=== PATIENT | female | born 1960 | race Caucasian/White ===

== ENCOUNTER 2017-02-21 05:55 | Day surgery (SDC) | payer BC ==
[2017-02-21] VITALS (9 sets, daily range): BP systolic 110–139; BP diastolic 53–76
[~2017-02-21] VITALS: Ht 157.5 cm; Wt 100.7 kg
[~2017-02-21 05:55] MED LIST: ALOE VERA500 MG PO; BACTRIM DS1 TAB PO; CIPRO XR500 MG PO; CIPROFLOXACN500 MG PO; CRESTOR10 MG PO; DILAUDID2 MG PO; FLAGYL500 MG PO; HYDROCHLOROT12.5 MG PO; LEVOTHYROXIN100 MCG PO; LORTAB 5/3255 MG PO; LOSARTAN POTASS50 MG PO; METRONIDAZOL500 MG PO; MILK OF MAG30 ML/UDC PO; MUPIROCIN2 % EX; OXYCODONE HCL5 MG PO; TRAMADOL HCL50 MG PO; VITAMIN B-121000 MCG PO; ZOFRAN4 MG/TAB PO
[2017-02-21 16:55] LABS: HEMATOCRIT 32.2 % (37.0-47.0); HEMOGLOBIN 10.9 g/dl (12.0-16.0)
[2017-02-22 00:46] VITALS: BP 106/69
[2017-02-22 05:05] VITALS: BP 134/90; BP 97/69
[2017-02-22 07:53] VITALS: BP 125/59
[2017-02-22 15:18] VITALS: BP 103/57
[2017-02-22 19:21] VITALS: BP 107/58
[2017-02-23 04:34] VITALS: BP 125/64
[2017-02-23 07:36] VITALS: BP 138/50
[2017-02-23] MEDS ORDERED: LORTAB 7.5-3251 TAB PO (07:48)
[2017-02-23] MEDS ORDERED: MACROBID100 MG PO (07:49)
== END 2017-02-23 09:30 | disposition home or self-care (01) | DRG 742 ==
LOC: ENPENDDIS → ORM 05:55 → MS2 09:15 → ORM 02-23 09:30
PROVIDERS: ATTEND Obstetrics & Gynecology
PROC: 0UT97ZZ Resection of Uterus, Via Natural or Artificial Opening (ICD-10-PCS; principal; 2017-02-21)
PROC: 0UTC7ZZ Resection of Cervix, Via Natural or Artificial Opening (ICD-10-PCS; 2017-02-21)
PROC: 0JQC0ZZ Repair Pelvic Region Subcutaneous Tissue and Fascia, Open Approach (ICD-10-PCS; 2017-02-21)
PROC: 0TSD0ZZ Reposition Urethra, Open Approach (ICD-10-PCS; 2017-02-21)
DX: N81.4 Uterovaginal prolapse, unspecified (principal); Z68.41 Body mass index [BMI] 40.0-44.9, adult; N39.3 Stress incontinence (female) (male); R33.9 Retention of urine, unspecified; E66.9 Obesity, unspecified
CPT/HCPCS: J2710; Q9967

== ENCOUNTER 2018-06-05 01:57 | Emergency (ER) | payer BC ==
[~2018-06-05] VITALS: Ht 157.5 cm; Wt 97.6 kg
[~2018-06-05 01:57] MED LIST changes: +LORTAB 7.5-3251 TAB PO; +MACROBID100 MG PO
[2018-06-05] MEDS ORDERED: OMEPRAZOLE10 MG PO (02:06)
[2018-06-05 02:40] LABS: HEMOGLOBIN 12.7 g/dl (12.0-16.0); IMMATURE GRANULOCYTES 0.3 % (0.0-5.0); MEAN CORPUSCULAR HGB 29.7 pG CALC (26.0-32.0); NEUT# 6.54 thou/uL (2.00-7.15); RED BLOOD COUNT 4.28 mill/uL (4.20-5.60); RED CELL DISTRI WIDTH 13.3 % (11.5-15.5)
[2018-06-05 02:45] LABS: HEMATOCRIT 38.5 % (37.0-47.0)
[2018-06-05 02:52] LABS: ALBUMIN 3.6 g/dL (3.2-5.0); ALKALINE PHOSPHATASE 173 u/l (38-126); ANION GAP 12 (6-22 (CALC)); BILIRUBIN, TOTAL 1.1 mg/dL (0.0-1.4); BUN 17 mg/dL (7-17); BUN/CREATININE RATIO 22 (12-20 (CALC)); CARBON DIOXIDE 26 mmol/l (22-30); CHLORIDE 105 mmol/l (95-108); CREATININE 0.8 mg/dL (0.5-1.0); GFR > 60 ML/MIN (>=60 (CALC)); GFR FOR AFR.AMER. > 60 ML/MIN (>=60 (CALC)); POTASSIUM 4.4 mmol/l (3.5-5.1); SGOT/AST 36 u/l (14-36); SODIUM 139 mmol/l (137-146); TOTAL PROTEIN 6.6 g/dL (6.3-8.2)
[2018-06-05] MEDS ORDERED: NAPROSYN500 MG PO (04:06)
[2018-06-05] MEDS ORDERED: AMOXICILLIN500 MG PO (04:06)
[2018-06-05 04:15] VITALS: BP 164/77
== END 2018-06-05 04:22 | disposition home or self-care (01) | DRG 159 ==
LOC: ED 01:57
PROVIDERS: Emergency Medicine
DX: K04.7 Periapical abscess without sinus (principal); R22.0 Localized swelling, mass and lump, head; K08.89 Other specified disorders of teeth and supporting structures

== ENCOUNTER 2018-06-22 08:22 | Day surgery (SDC) | payer BC ==
[~2018-06-22] VITALS: Ht 157.5 cm; Wt 95.7 kg
[~2018-06-22 08:22] MED LIST changes: +AMOXICILLIN500 MG PO; +ESTRADIOL0.5 MG PO; +MELOXICAM7.5 MG PO; +NAPROSYN500 MG PO; +OMEPRAZOLE10 MG PO; +XANAX0.25 MG PO
[2018-06-22 11:22] VITALS: BP 164/83
== END 2018-06-22 11:36 | disposition home or self-care (01) | DRG 392 ==
LOC: ENDO 08:22 → ORM 09:30 → ENDO 10:45 → ORM 11:55 → ENDO 11:55 → ORM 12:15 → ENDO 12:55 → ORM 12:55
PROVIDERS: ATTEND Internal Medicine Gastroenterology
PROC: 0D758ZZ Dilation of Esophagus, Via Natural or Artificial Opening Endoscopic (ICD-10-PCS; principal; 2018-06-22)
PROC: 0DB48ZX Excision of Esophagogastric Junction, Via Natural or Artificial Opening Endoscopic, Diagnostic (ICD-10-PCS; 2018-06-22)
PROC: 0DB78ZX Excision of Stomach, Pylorus, Via Natural or Artificial Opening Endoscopic, Diagnostic (ICD-10-PCS; 2018-06-22)
DX: K22.2 Esophageal obstruction (principal); K21.9 Gastro-esophageal reflux disease without esophagitis; K29.70 Gastritis, unspecified, without bleeding; K25.9 Gastric ulcer, unspecified as acute or chronic, without hemorrhage or perforation; K44.9 Diaphragmatic hernia without obstruction or gangrene; E03.9 Hypothyroidism, unspecified; Z79.899 Other long term (current) drug therapy

== ENCOUNTER 2018-11-05 20:08 | Emergency (ER) | payer BC ==
[~2018-11-05] VITALS: Ht 157.5 cm; Wt 95.0 kg
[2018-11-05 21:13] LABS: HEMATOCRIT 37.7 % (37.0-47.0); HEMOGLOBIN 12.4 g/dl (12.0-16.0); IMMATURE GRANULOCYTES 0.3 % (0.0-5.0); MEAN CELL VOLUME 90.4 fL CALC (80.0-100.0); MEAN CORPUSCULAR HGB 29.7 pG CALC (26.0-32.0); MEAN CORPUSCULAR HGB CONC 32.9 g/L CALC (32.0-36.0); NEUT# 7.16 thou/uL (2.00-7.15); RED BLOOD COUNT 4.17 mill/uL (4.20-5.60); RED CELL DISTRI WIDTH 12.9 % (11.5-15.5)
[2018-11-05 21:25] LABS: ALBUMIN 3.8 g/dL (3.2-5.0); ALKALINE PHOSPHATASE 162 u/l (38-126); ANION GAP 14 (6-22 (CALC)); BILIRUBIN, TOTAL 0.9 mg/dL (0.0-1.4); BUN 19 mg/dL (7-17); BUN/CREATININE RATIO 21 (12-20 (CALC)); CARBON DIOXIDE 26 mmol/l (22-30); CHLORIDE 101 mmol/l (95-108); CREATININE 0.9 mg/dL (0.5-1.0); GFR > 60 ML/MIN (>=60 (CALC)); GFR FOR AFR.AMER. > 60 ML/MIN (>=60 (CALC)); POTASSIUM 4.1 mmol/l (3.5-5.1); SGOT/AST 30 u/l (14-36); SODIUM 137 mmol/l (137-146); TOTAL PROTEIN 6.9 g/dL (6.3-8.2)
[2018-11-05] MEDS ORDERED: AMOXICILLIN500 MG PO (21:47)
[2018-11-05] MEDS ORDERED: NAPROSYN500 MG PO (21:55)
[2018-11-05 22:35] VITALS: BP 176/74
== END 2018-11-05 22:35 | disposition home or self-care (01) | DRG 603 ==
LOC: ED 20:08
PROVIDERS: Emergency Medicine
DX: L03.115 Cellulitis of right lower limb (principal); R22.41 Localized swelling, mass and lump, right lower limb; R50.9 Fever, unspecified

== ENCOUNTER 2019-04-10 06:24 | Day surgery (SDC) | payer BC ==
[~2019-04-10] VITALS: Ht 157.5 cm; Wt 96.6 kg
[~2019-04-10 06:24] MED LIST changes: +ABILIFY10 MG PO
[2019-04-10 07:55] VITALS: BP 175/79
== END 2019-04-10 08:22 | disposition home or self-care (01) | DRG 556 ==
LOC: ORM 06:24
PROVIDERS: ATTEND Anesthesiology Pain Medicine
PROC: 3E0U33Z Introduction of Anti-inflammatory into Joints, Percutaneous Approach (ICD-10-PCS; principal; 2019-04-10)
PROC: 3E0U3BZ Introduction of Anesthetic Agent into Joints, Percutaneous Approach (ICD-10-PCS; 2019-04-10)
DX: M25.511 Pain in right shoulder (principal); M77.8 Other enthesopathies, not elsewhere classified; M19.011 Primary osteoarthritis, right shoulder

== ENCOUNTER 2019-05-01 06:07 | Day surgery (SDC) | payer BC ==
[~2019-05-01] VITALS: Ht 157.5 cm; Wt 93.4 kg
[2019-05-01] MEDS ORDERED: ANTIINFLAMMATORY PO (06:27)
[2019-05-01 07:41] VITALS: BP 182/79
== END 2019-05-01 08:35 | disposition home or self-care (01) | DRG 556 ==
LOC: ORM 06:07
PROVIDERS: ATTEND Anesthesiology Pain Medicine
PROC: 3E0U33Z Introduction of Anti-inflammatory into Joints, Percutaneous Approach (ICD-10-PCS; principal; 2019-05-01)
PROC: 3E0U3BZ Introduction of Anesthetic Agent into Joints, Percutaneous Approach (ICD-10-PCS; 2019-05-01)
DX: M25.511 Pain in right shoulder (principal); M25.512 Pain in left shoulder; M65.812 Other synovitis and tenosynovitis, left shoulder; M65.811 Other synovitis and tenosynovitis, right shoulder

== ENCOUNTER 2019-12-24 15:01 | Observation (INO) | payer BC ==
[~2019-12-24] VITALS: Ht 157.5 cm; Wt 102.0 kg
[~2019-12-24 15:01] MED LIST changes: +ANTIINFLAMMATORY PO
--- NOTE | 2019-12-24 15:11 | NUR ---
PT TO ROOM PER W/C, ALERT/ORIENTED, NO COMPLAINTS AT THIS TIME. STATES WAS SENT TO ER PER DOCTOR IN [place] THRU TELE MEDICINE
[2019-12-24 15:27] LABS: HEMOGLOBIN 12.3 g/dl (12.0-16.0); IMMATURE GRANULOCYTES 0.4 % (0.0-5.0); MEAN CELL VOLUME 89.8 fL CALC (80.0-100.0); MEAN CORPUSCULAR HGB 29.1 pG CALC (26.0-32.0); MEAN CORPUSCULAR HGB CONC 32.4 g/dL CAL (32.0-36.0); NEUT# 6.17 thou/uL (2.00-7.15); RED BLOOD COUNT 4.23 mill/uL (4.20-5.60); RED CELL DISTRI WIDTH 12.8 % (11.5-15.5)
[2019-12-24] MEDS ORDERED: GABAPENTIN100 MG PO (15:27)
[2019-12-24] MEDS ORDERED: VENTOLIN HFA IN (15:28)
[2019-12-24] MEDS ORDERED: MELOXICAM7.5 MG PO (15:29)
[2019-12-24] MEDS ORDERED: ROPINIROLE0.5 MG PO (15:29)
[2019-12-24 15:39] LABS: ALBUMIN 3.9 g/dL (3.2-5.0); ALKALINE PHOSPHATASE 126 u/l (38-126); ANION GAP 11 (6-22 (CALC)); BILIRUBIN, TOTAL 0.7 mg/dL (0.0-1.4); BUN 24 mg/dL (7-17); BUN/CREATININE RATIO 30 (12-20 (CALC)); CARBON DIOXIDE 24 mmol/l (22-30); CHLORIDE 104 mmol/l (95-108); CREATININE 0.8 mg/dL (0.5-1.0); GFR > 60 ML/MIN (>=60 (CALC)); GFR FOR AFR.AMER. > 60 ML/MIN (>=60 (CALC)); POTASSIUM 3.6 mmol/l (3.5-5.1); SGOT/AST 28 u/l (14-36); SODIUM 135 mmol/l (137-146); TOTAL PROTEIN 7.3 g/dL (6.3-8.2)
[2019-12-24 15:49] LABS: INTERNATIONAL NORMALIZED RATIO 1.2 RATIO (0.7-1.3); PROTHROMBIN TIME 12.5 SECONDS (9.0-12.5)
[2019-12-24 15:51] LABS: MYOGLOBIN 33 ng/mL (0 - 62)
--- NOTE | 2019-12-24 16:44 | NUR ---
PT W/HOB CONVERSING W/FAMILY ON PHONE. SPEECH CLEAR AND APPROPRIATE ABLE TO OPERATE PHONE WITHOUT ASSIST. NO S/S OF CVA/TIA AT THIS TIME. IV SITE HEALTHY TO LAC.
[2019-12-24 17:09] LABS: URINE BILIRUBIN - DIPSTICK NEGATIVE (NEGATIVE); URINE BLOOD DIPSTICK TRACE-INTACT (NEGATIVE); URINE COLOR YELLOW; URINE GLUCOSE - DIPSTICK NEGATIVE (NEGATIVE); URINE KETONE NEGATIVE (NEGATIVE); URINE LEUK ESTERASE NEGATIVE (NEGATIVE); URINE NITRITE - DIPSTICK NEGATIVE (Negative); URINE PROTEIN - DIPSTICK NEGATIVE (NEG-TRACE); URINE UROBILINOGEN - DIPSTICK 0.2 E.U./dL (0.2)
--- NOTE | 2019-12-24 17:45 | NUR ---
TELEMETRY PLACED ON PT. PT AWARE OF PENDING ADMIT. SPEECH CLEAR NO C/O SYMPTOMS OF CVA SINCE ARRIVAL.
--- NOTE | 2019-12-24 18:14 | NUR ---
REPORT CALLED TO MANA SMITH, ON [facility]. SECOND TROPININ OBTAINED BY LAB.
--- NOTE | 2019-12-24 18:30 | NUR ---
PT ARRIVES TO ROOM 260 VIA STRETCHER FROM ER, ACCOMPANIED BY JOSE ADAIR. PT IS AMBULATORY, ALERT AND ORIENTED X 3. PT DENIES NUMBNESS TO LEFT ARM OR LEG. MEAL PROVIDED, PT ORIENTED TO ROOM AND CALL [place].
--- NOTE | 2019-12-24 18:30 | NUR ---
PT TO RM 260 MS VIA STRETCHER IN STABLE CONDITION. LAC IV SITE PATENT W/BRISK RETURN. AREA IS SLIGHTLY BRUISED AFTER CTA. FUNCTIONS WITHOUT DIFFICULTY. PT ON TELEMETRY. VSS.
[2019-12-24 19:00] VITALS: BP 201/86
[2019-12-24 20:10] VITALS: BP 180/69
--- NOTE | 2019-12-24 20:10 | NUR ---
- ADMISSION ASSESSMENT COMPLETED. PT. REPORTS X9 EPISODES TOTAL SINCE November OF HEAVINESS/NUMBNESS TO LEFT SIDE FROM HEAD TO TOE PER PT. ALSO REPORTS SLIGHT BLUR TO LEFT EYE WELL. PT. DOES ADMIT TO IT ALMOST BEING TIME FOR HER TO SEE EYE DR FOR NEW PRESCRIPTION FOR LENSES. PUPIL TO LEFT EYE DOES APPEAR SLIGHTLY LARGER THAN RIGHT PUPIL. BOTH ARE REACTIVE TO LIGHT. PT. ABLE TO MOVE ALL EXTREMETIES WELL WITHOUT DIFFICULTY. WILL CONTINUE TO MONITOR. B/P 180/69 WITH HR OF [address] DE LOS SANTOS ALONG WITH THIS RECEIVING ROOM CLERK ADMINISTERING PO PRN XANAX. ORDERS RECEIVED TO REASSESS AND NOTIFY HIM OF REASSESSED B/P. TELEMETRY IN PLACE. POC REVIEWED WITH PT. AND VERBALIZES UNDERSTANDING. CALL LIGHT IS IN REACH.
[2019-12-24 20:32] VITALS: BP 177/82
--- NOTE | 2019-12-24 20:35 | NUR ---
PT. REQUESTS NEW IV SITE, OLD SITE REMOVED TO LAC AND NEW ONE STARTED TO RFA X2 ATTEMPTS; PT. TOLERATED WELL.
--- NOTE | 2019-12-24 21:01 | NUR ---
NOTIFIED DR. DE LOS SANTOS OF REASSESSED B/P NOW WITH HR OF 66. NO NEW ORDERS RECEIVED FOR MEDICATION, ONLY TO MONITOR IT FOR NOW.
[2019-12-24 21:10] VITALS: BP 176/82
[2019-12-25] VITALS (11 sets, daily range): BP systolic 133–178; BP diastolic 58–84
--- NOTE | 2019-12-25 00:30 | NUR ---
NEURO CHECK REMAINS THE SAME. DENIES NEEDS. VSS. ENCOURAGED TO CALL FOR ANY NEEDS.
--- NOTE | 2019-12-25 04:35 | NUR ---
NEURO CHECK WITH NO CHANGE. FRESH WATER AND JUICE PROVIDED. DENIES NEEDS. CALL LIGHT IS IN REACH.
--- NOTE | 2019-12-25 06:20 | NUR ---
RESTING IN BED WITH EYES CLOSED; RESP. DISTRESS NOTED; CALL LIGHT IS IN REACH.
--- NOTE | 2019-12-25 07:25 | NUR ---
REPORT RECEIVED FROM MANA AZUL;PT RESTING IN SEMI FOWLERS POSITION;INTRODUCED SELF TO PT AND POC DISCUSSED;VS OBTAINED AND ASSESSMENT COMPLETED;PT DENIES ANY CURRENT PAIN OR WEAKNESS,PAIN SCALE AND REPORTING EDUCATED;RESPIRATIONS EVEN AND UNLABORED ON RA,CLEAR LUNG SOUNDS;ABDOMEN SOFT ON PALPATION AND ACTIVE IN ALL 4 QUADRANTS;STRONG PEDAL PULSES;SKIN INTACT;TELE MONITORING IN PLACE;BILATERAL ASSEMBLER TRUCK TRAILER STRONG;#22G TO RFA FLUSHED AND PATENT,SITE APPEARS HEALTHY;PT DENIES ANY ADDITIONAL NEEDS AT THIS TIME AND IS ENCOURAGED TO CALL FOR ASSISTANCE IF NEEDED;FALL PRECAUTIONS IN PLACE WITH BED IN THE LOWEST POSITION AND CALL LIGHT IN REACH;WILL CONTINUE TO MONITOR
--- NOTE | 2019-12-25 07:55 | NUR ---
NOTIFIED KISHA,ANANAY OF ELEVATED BP 176/84 HR 65. ANRP TO REVIEW CHART, NO NEW ORDERS RECEIVED AT THIS TIME;WILL CONTINUE TO MONITOR
--- NOTE | 2019-12-25 08:23 | NUR ---
KISHA,ANRP AT BEDSIDE
--- NOTE | 2019-12-25 08:45 | NUR ---
PT RESTING IN SEMI FOWLERS POSITION;RESPIRATIONS REMAIN EVEN AND UNLABORED ON RA;PT REPORTS HEADACHE PAIN RATING 6/10 ON THE PAIN SCALE AND REQUESTS PAIN MEDICATION,PT MEDICATED WITH PRN TYLENOL 650MG PO AT THIS TIME;BP RE-CHECK 178/77 HR 68, PT TO BE MEDICATED WITH PRN APRESOLINE 10MG IVP BY MANA MORALES;PT DENIES ANY ADDITIONAL NEEDS AT THIS TIME AND IS ENCOURAGED TO CALL FOR ASSISTANCE IF NEEDED;CALL LIGHT IN REACH;WILL CONTINUE TO MONITOR
--- NOTE | 2019-12-25 09:13 | NUR ---
BP RE-CHECK 146/74 HR 73,PT REPORTS THAT HEADACHE PAIN HAS DECREASED TO A 4/10 ON THE PAIN SCALE AFTER PRN TYLENOL ADMINISTRATION;WILL CONTINUE TO MONITOR
--- NOTE | 2019-12-25 09:15 | NUR ---
PT TRANSPORTED TO MRI IN STABLE CONDITION VIA WHEELCHAIR ACCOMPANIED BY JULIANNE MOJICA.
--- NOTE | 2019-12-25 10:35 | NUR ---
PT TRANSPORTED BACK TO MED/SURG ROOM 260 IN STABLE CONDITION FROM MRI VIA WHEELCHAIR ACCOMPANIED BY WRITTER;WHILE AMBULATING TO RESTROOM PT EXPERIENCED "TINGLING AND SLIGHT NUMBNESS" TO LEFT ARM AND LOWER LEG WHICH RESOLVED WITHIN A FEW SECONDS;PT AMBULATED TO BEDSIDE WITH A STEADY GAIT.IT INTERN REMAIN STRONG AND EQUAL TO BOTH SIDES;PT DENIES ANY CURRENT PAIN OR DISCOMFORTS;RESPIRATIONS REMAIN EVEN AND UNLABORED ON RA;PT RE-POSITIONED INTO BED AND TELE MONITORING REPLACED TO CHEST. @1040: VS OBTAINED. BP 166/79 HR 68 O2 100% ON RA, TEMP 97.6. MERVAT BEARD NOTIFIED OF VS AND EVENT.NO NEW ORDERS RECEIVED AT THIS TIME. PT DENIES ANY ADDITONAL NEEDS AND IS ENCOURAGED TO CALL FOR ASSISTANCE IF NEEDED;FALL PRECAUTIONS IN PLACE WITH CALL LIGHT IN REACH;WILL CONTINUE TO MONITOR
--- NOTE | 2019-12-25 11:35 | NUR ---
PT RESTING IN SUPINE POSITION;RESPIRATIONS EVEN AND UNLABORED ON RA;PT DENIES ANY CURRENT PAIN OR DISCOMFORTS;TELE MONITORING IN PLACE;IV SITE PATENT;ASSESSMENT REMAINS UNCHANGED AT THIS TIME;ENCOURAGED TO CALL FOR ASSISTANCE IF NEEDED;CALL LIGHT IN REACH;WILL CONTINUE TO MONITOR
--- NOTE | 2019-12-25 12:12 | NUR ---
AT BEDSIDE DISCUSSING POC.
--- NOTE | 2019-12-25 15:18 | NUR ---
PT RESTING IN SEMI FOWLERS POSITION WATCHING TV;RESPIRATIONS EVEN AND UNLABORED ON RA;PT DENIES ANY CURRENT PAIN OR NEEDS;TELE MONITORING IN PLACE;IV SITE PATENT;ICE CREAM PROVIDED PER REQUEST;ASSESSMENT REMAINS UNCHANGED AT THIS TIME;PT ENCOURAGED TO CALL FOR ASSISTANCE IF NEEDED;FALL PRECAUTIONS IN PLACE WITH CALL LIGHT IN REACH;WILL CONTINUE TO MONITOR
--- NOTE | 2019-12-25 20:00 | NUR ---
PT AWAKE RESTING IN BED WATCHING T.V. ALERT AND ORIENTED X3. SPEECH IS CLEAR AND APPROPRIATE. PUPILS ARE REACTIVE. RT PUPIL 2MM AND LEFT PUPIL IS 3MM, UNCHANGED FROM PRIOR SHIFT ASSESSMENT. NO FACIAL DROOP NOTED. MOVES ALL EXT ON COMMAND. HAND GRASPS ARE STRONG AND EQUAL, NO DRIFTS NOTED IN ANY EXT. LIMB STRENGTH IS STRONG. PT DENIES ANY DIZZINESS OR WEAKNESS. RESP EVEN AND UNLABORED. LUNGS CLEAR BILAT. ABD SOFT WITH BOWEL SOUNDS PRESENT. NO LOWER EXT EDEMA NOTED. PEDAL PULSES PALPATED BILAT. HEPLOCK IS PATENT. TELE READING SR. WILL CONTINUE TO CLOSELY MONITOR. FREQUENT ROUNDS MADE. CALL [place] WITHIN REACH.
--- NOTE | 2019-12-25 22:08 | NUR ---
PT EATING EVENING SNACK. OFFERS NO COMPLAINTS. CALL [place] WITHIN REACH.
--- NOTE | 2019-12-26 00:25 | NUR ---
PT WOKE. NEURO ASSESSMENT UNCHANGED. RESP EVEN AND UNLABORED. OFFERS NO COMPLAINTS. FREQUENT ROUNDS MADE. CALL [place] WITHIN REACH.
[2019-12-26 04:00] VITALS: BP 143/76
--- NOTE | 2019-12-26 04:23 | NUR ---
PT AWAKE RESTING IN BED. RESP EVEN AND UNLABORED. NO DISTRESS NOTED. ASSESSMENT UNCHANGED. FREQUENT ROUNDS MADE. CALL [place] WITHIN REACH.
--- NOTE | 2019-12-26 06:00 | NUR ---
PT RESTING IN BED WITH EYES CLOSED. RESP EVEN AND UNLABORED. NO DISTRESS NOTED. CALL [place] WITHIN REACH.
--- NOTE | 2019-12-26 07:00 | NUR ---
REPORT RECEIVED FROM MANA PACK;PT APPEARS TO BE SLEEPING IN SUPINE POSITION;NO S/S OF DISTRESS NOTED;RESPIRATIONS EVEN AND UNLABORED ON RA;TELE MONITORING IN PLACE;ALL SAFETY PRECAUTIONS NOTED WITH BED IN THE LOWEST POSITION AND CALL LIGHT IN REACH;WILL CONTINUE TO MONITOR
[2019-12-26 08:13] VITALS: BP 162/77
--- NOTE | 2019-12-26 08:15 | NUR ---
PT APPEARS TO BE SLEEPING IN SUPINE POSITION,WAKES EASILY TO VERBAL STIMULI;PT A&O X3,VS OBTAINED AND ASSESSMENT COMPLETED;PT DENIES ANY CURRENT PAIN OR DISCOMFORTS,PAIN SCALE AND REPORTING EDUCATED;RESPIRATIONS EVEN AND UNLABORED ON RA,CLEAR LUNG SOUNDS;ABDOMEN SOFT ON PALPATION AND ACTIVE IN ALL 4 QUADRANTS;STRONG PEDAL PULSES;SKIN INTACT;TELE MONITORING IN PLACE;#22G TO RFA FLUSHED AND PATENT,SITE APPEARS HEALTHY;PT DENIES ANY ADDITIONAL NEEDS AT THIS TIME AND IS ENCOURAGED TO CALL FOR ASSISTANCE IF NEEDED;FALL PRECAUTIONS IN PLACE WITH BED IN THE LOWEST POSITION AND CALL LIGHT IN REACH;WILL CONTINUE TO MONITOR
[2019-12-26 10:30] VITALS: BP 149/77
[2019-12-26] MEDS ORDERED: ATORVASTATIN CA10 MG PO (10:47)
[2019-12-26] MEDS ORDERED: LOSARTAN POTASS50 MG PO (10:47)
[2019-12-26] MEDS ORDERED: ASPIRIN EC325 M1 PO (10:47)
--- NOTE | 2019-12-26 11:40 | NUR ---
PT RESTING IN SEMI FOWLERS POSITION;RESPIRATIONS EVEN AND UNLABORED ON RA;PT DENIES ANY CURRENT PAIN OR NEEDS;TELE MONITORING IN PLACE;IV SITE PATENT;PT VERBALIZES UNDERSTANDING OF PLANS TO D/C HOME;PT ENCOURAGED TO CALL FOR ASSISTANCE IF NEEDED;CALL LIGHT IN REACH;WILL CONTINUE TO MONITOR
--- NOTE | 2019-12-26 11:50 | NUR ---
ALL DISCHARGE INSTRUCTIONS PROVIDED AT THIS TIME;PT INSTRUCTED TO TAKE APSIRIN,LOSARTAN, AND STATIN PRESCRIBED.MONITOR BP AND FOLLOW WITH PCP;PT DENIES ANY QUESTIONS OR NEEDS;IV SITE REMOVED WITH CATHETER INTACT AND TELE MONITORING D/C;PT REFUSES WHEELCHAIR FOR D/C HOME;PT TO TRANSPORT SELF HOME.WILL CONTINUE TO MONITOR
--- NOTE | 2019-12-26 12:46 | NUR ---
Discharge instructions given. Patient verbalizes understanding of same. Discharged in stable condition via Ambulatory to Home with *Other. All belongings sent with pt. PT AMBULATED TO LOBBY WITH A STEADY GAIT FOR D/C HOME.PT DENIES ANY ADDITIONAL QUESTIONS OR NEEDS;PT TO TRANSPORT SELF HOME.
== END 2019-12-26 12:46 | disposition home or self-care (01) | DRG 69 ==
LOC: ED 15:01 → ED-I 17:16 → ED 17:25 → ED-I 17:26 → MS2 17:26
PROVIDERS: ADMIT Internal Medicine; ATTEND Internal Medicine
DX: G45.9 Transient cerebral ischemic attack, unspecified (principal); Z68.41 Body mass index [BMI] 40.0-44.9, adult; E03.9 Hypothyroidism, unspecified; I10 Essential (primary) hypertension; G25.81 Restless legs syndrome; M06.9 Rheumatoid arthritis, unspecified; K21.9 Gastro-esophageal reflux disease without esophagitis; E66.9 Obesity, unspecified; F41.9 Anxiety disorder, unspecified; Z82.49 Family history of ischemic heart disease and other diseases of the circulatory system
CPT/HCPCS: A9579; G0378; J1650; Q9967

== ENCOUNTER 2020-03-26 09:37 | Emergency (ER) | payer BC ==
[~2020-03-26] VITALS: Ht 157.5 cm; Wt 90.0 kg
[~2020-03-26 09:37] MED LIST changes: +ASPIRIN EC325 M1 PO; +ATORVASTATIN CA10 MG PO; +GABAPENTIN100 MG PO; +ROPINIROLE0.5 MG PO; +VENTOLIN HFA IN
[2020-03-26 12:06] VITALS: BP 173/79
== END 2020-03-26 12:10 | disposition home or self-care (01) | DRG 948 ==
LOC: ED 09:37
DX: R52 Pain, unspecified (principal); R05 Cough; R50.9 Fever, unspecified; Z20.828 Contact with and (suspected) exposure to other viral communicable diseases

== ENCOUNTER 2021-07-16 09:19 | Emergency (ER) | payer BC ==
[~2021-07-16] VITALS: Ht 157.5 cm; Wt 100.0 kg
[2021-07-16 10:13] LABS: URINE BLOOD DIPSTICK SMALL (NEGATIVE); URINE COLOR YELLOW; URINE GLUCOSE - DIPSTICK NEGATIVE (NEGATIVE); URINE KETONE NEGATIVE (NEGATIVE); URINE PROTEIN - DIPSTICK TRACE mg/dL (NEG-TRACE); URINE SPECIFIC GRAVITY >=1.030; URINE UROBILINOGEN - DIPSTICK 0.2 E.U./dL (0.2)
[2021-07-16 10:20] LABS: URINE BILIRUBIN - DIPSTICK SMALL (NEGATIVE); URINE LEUK ESTERASE SMALL (NEGATIVE); URINE NITRITE - DIPSTICK NEGATIVE (Negative)
[2021-07-16 10:21] LABS: URINE BACTERIA FEW hpf; URINE EPITHELIAL CELLS MODERATE EPI/hpf (0-FEW)
[2021-07-16 10:24] LABS: ALBUMIN 3.8 g/dL (3.2-5.0); AMYLASE 61 u/l (30-110); ANION GAP 13 (6-22 (CALC)); BUN 19 mg/dL (8-23); BUN/CREATININE RATIO 18 (12-20 (CALC)); CARBON DIOXIDE 21 mmol/l (22-30); CHLORIDE 103 mmol/l (95-108); CREATININE 1.1 mg/dL (0.5-1.0); GFR 50 ML/MIN (>=60 (CALC)); GFR FOR AFR.AMER. > 60 ML/MIN (>=60 (CALC)); LIPASE 37 u/l (23-300); POTASSIUM 3.5 mmol/l (3.5-5.1); SODIUM 133 mmol/l (137-146)
[2021-07-16 10:26] LABS: ALKALINE PHOSPHATASE 278 u/l (38-126); BILIRUBIN, TOTAL 1.6 mg/dL (0.0-1.4); SGOT/AST 165 u/l (9-36)
[2021-07-16 10:40] LABS: HEMATOCRIT 41.6 % (37.0-47.0); HEMOGLOBIN 13.5 g/dl (12.0-16.0); IMMATURE GRANULOCYTES 0.1 % (0.0-5.0); MEAN CORPUSCULAR HGB 31.4 pG CALC (26.0-32.0); MEAN CORPUSCULAR HGB CONC 32.5 g/dL CAL (32.0-36.0); NEUT# 12.75 thou/uL (2.00-7.15); RED BLOOD COUNT 4.3 mill/uL (4.20-5.60); RED CELL DISTRI WIDTH 13.4 % (11.5-15.5)
[2021-07-16 10:41] LABS: MEAN CELL VOLUME 96.7 fL CALC (80.0-100.0)
[2021-07-16 14:54] VITALS: BP 145/71
== END 2021-07-16 15:31 | disposition short-term general hospital (02) | DRG 389 ==
LOC: ED 09:19
DX: K56.7 Ileus, unspecified (principal); N39.0 Urinary tract infection, site not specified; R74.8 Abnormal levels of other serum enzymes; R11.2 Nausea with vomiting, unspecified; E03.9 Hypothyroidism, unspecified; F41.9 Anxiety disorder, unspecified; M06.9 Rheumatoid arthritis, unspecified; Z20.822 Contact with and (suspected) exposure to COVID-19
CPT/HCPCS: Q9967

== ENCOUNTER 2023-01-15 14:37 | Emergency (ER) | payer BC ==
[~2023-01-15] VITALS: Ht 157.5 cm; Wt 96.0 kg
[2023-01-15 15:19] VITALS: BP 181/108
[2023-01-15 15:20] VITALS: BP 175/89
[2023-01-15 15:30] VITALS: BP 155/62
[2023-01-15] MEDS ORDERED: PAXLOVID PO (15:31)
[2023-01-15 16:04] VITALS: BP 155/62
== END 2023-01-15 16:06 | disposition home or self-care (01) | DRG 179 ==
LOC: ED 14:37
DX: U07.1 COVID-19 (principal); R05.9 Cough, unspecified; R50.9 Fever, unspecified; R52 Pain, unspecified; R53.83 Other fatigue; E03.9 Hypothyroidism, unspecified; F41.9 Anxiety disorder, unspecified; M06.9 Rheumatoid arthritis, unspecified

== ENCOUNTER 2024-06-06 09:20 | Emergency (ER) | payer BC ==
[~2024-06-06] VITALS: Ht 157.5 cm; Wt 77.0 kg
[~2024-06-06 09:20] MED LIST changes: +LEVAQUIN750 M1 PO; +PAXLOVID PO
[2024-06-06] MEDS ORDERED: LIDOcaine HCl 1% (Local Anesth.) 20 ML VIAL STI STA (10:48)
[2024-06-06] MEDS ORDERED: POVIDONE IODINE 0.5 OZ/BTL TOP ONE (10:50)
[2024-06-06] MEDS ORDERED: SODIUM CHLORIDE 500 ML BTL IR ONE (10:50)
[2024-06-06] MEDS ORDERED: NEOMYCIN-BACITRACIN-POLYMYXIN 0.5 GM/PAK PAK TOP ONE (10:50)
[2024-06-06] MEDS ORDERED: oxyCODONE 5MG/ ACETAMINOPHEN 325MG TAB PO ONE (11:00)
[2024-06-06] MEDS ORDERED: TRAMADOL HYDROC50 M1 PO (11:16)
[2024-06-06] MEDS ORDERED: KEFLEX500 MG PO (11:16)
[2024-06-06 11:35] VITALS: BP 132/73
== END 2024-06-06 11:42 | disposition home or self-care (01) | DRG 605 ==
LOC: ED 09:20
PROC: 0HQLXZZ Repair Left Lower Leg Skin, External Approach (ICD-10-PCS; principal; 2024-06-06)
DX: S81.812A Laceration without foreign body, left lower leg, initial encounter (principal); E03.9 Hypothyroidism, unspecified; F41.9 Anxiety disorder, unspecified; M06.9 Rheumatoid arthritis, unspecified; W22.09XA Striking against other stationary object, initial encounter; Y92.007 Garden or yard of unspecified non-institutional (private) residence as the place of occurrence of the external cause